=== PATIENT | female | born 1975 | race Caucasian/White ===

== ENCOUNTER → 2016-05-15 | Outpatient (CLI) | payer BC ==
--- NOTE | 2016-05-15 16:45 | MAMMOGRAPHY REPORT ---
BILATERAL DIGITAL SCREENING MAMMOGRAM TOMOSYNTHESIS WITH CAD: 05/15/2016 CLINICAL HISTORY: Routine screening examination. TECHNIQUE: Bilateral breast tomosynthesis in addition to standard 2D mammography was performed. Curr ent study was also evaluated with a Computer Aided Detection (CAD) system. COMPARISON: Comparison is made to exams dated: 05/12/2015 mammogram, 01/17/2014 mammogram, 4 mammogram, 01/17/2014 ultrasound, 02/09/2014 mammogram, and 08/08/2014 ultrasound - [facility]. BREAST COMPOSITION: There are scattered areas of fibroglandular density in both breasts. FINDINGS: There is an enlarging lobulated 7 mm mass in the approximate 2:30 left breast, for which additional targeted ultrasound and possible additional mammographic views are recommended. A newly visualized 6.4 mm mass is identified in the upper outer anterior right breast, also warranting targe galina ultrasound with possible additional mammographic views. No other suspicious mass, architectural distortion or cluster of suspicious microcalcifications is s een bilaterally. IMPRESSION: ACR BI-RADS CATEGORY 0: INCOMPLETE EVALUATION: NEED ADDITIONAL IMAGING EVALUATION The enlarging lobulated 7 mm mass in the 2:30 left breast, and newly visualized 6 mm mass in the upp er outer anterior right breast need additional imaging evaluation. The patient will be called to schedule an appointment. Approximately 10% of breast cancers are not detected with mammography. A negative mammographic repor t should not delay biopsy if a clinically suggestive mass is present. Yuliana Hudson M.D. ay/:05/15/2016 15:44:47 Instrument Operator: Ivelisse HERNANDEZ)([place]), [facility] letter sent: Addl Imaging 0 BI-RADS Code: ACR BI-RADS Category 0: Incomplete Evaluation: Need Additional Imaging Evaluation
== END | disposition home or self-care (01) ==
LOC: C.MAMM 14:19
PROVIDERS: ATTEND Family Medicine
DX: Z12.31 Encounter for screening mammogram for malignant neoplasm of breast (principal); N63 Unspecified lump in breast

== ENCOUNTER → 2016-05-29 | Outpatient (CLI) | payer BC ==
--- NOTE | 2016-05-29 14:42 | MAMMOGRAPHY REPORT ---
ULTRASOUND OF BOTH BREASTS: 05/29/2016 CLINICAL HISTORY: 41-year-old woman called back from screening mammography for an enlarging 7 mm mas s in the approximate 2:30 left breast and newly visualized 6 mm mass in the upper outer anterior rig ht breast. COMPARISON: Comparison is made to exams dated: 05/15/2016 mammogram, 05/12/2015 mammogram, 08/08/2014 ultrasound, 08/08/2014 mammogram, 02/09/2014 mammogram, and 02/09/2014 aspiration - [facility]. FINDINGS: Targeted ultrasound was performed in the approximate 2:00 through 4:00 left breast and up per outer quadrant of the right breast evaluate for the mammographic masses in each breast. In the 3:00 left breast, 4 cm from the nipple, there is a predominantly anechoic cyst with a few thin inter nal nonvascular septations, measuring 7.6 x 4.0 x 5.0 mm. This correlates well in size, shape and l ocation as the mammographic mass and is benign. In the 10:00 right breast, 1 cm from the nipple, th ere is an oval parallel circumscribed anechoic benign simple cyst measuring 6.2 x 3.3 x 6.0 mm. Thi s correlates well with the mammographic mass and is benign. Incidental note is made of a few other adjacent cysts in the 10:00 right breast, 1 cm from the nipple, measuring 2.9 mm, and a small cyst c luster in the 10:00 right breast, 2 cm from the nipple, measuring 4.8 x 2.2 x 6.8 mm. No suspicious solid mass is identified. IMPRESSION: ACR BI-RADS CATEGORY 2: BENIGN The circumscribed masses in each breast correlate with benign cysts on ultrasound. There is no sono graphic evidence of malignancy. Return to annual mammogram screening schedule is recommended. The p atient has been verbally notified of the results. Yuliana Hudson M.D. ay/:05/29/2016 09:23:05 Child & Adolescent Psychiatrist: Dr. Yuliana Hudson, [facility] letter sent: Normal 1/2 BI-RADS Code: ACR BI-RADS Category 2: Benign
== END | disposition home or self-care (01) ==
LOC: C.MAMM 08:41
PROVIDERS: ATTEND Family Medicine
DX: N60.01 Solitary cyst of right breast (principal); N60.02 Solitary cyst of left breast

== ENCOUNTER → 2016-08-06 | Outpatient (CLI) | payer BC | END | disposition home or self-care (01) | LOC: C.PAPS 11:01 | PROVIDERS: ATTEND Obstetrics & Gynecology | DX: Z01.419 Encounter for gynecological examination (general) (routine) without abnormal findings (principal) ==

== ENCOUNTER → 2016-12-09 | Outpatient (CLI) | payer BC ==
--- NOTE | 2016-12-09 16:14 | DIAGNOSTIC IMAGING REPORT ---
LEFT LOWER EXTREMITY VENOUS DOPPLER HISTORY: Acute left lower extremity pain and swelling PAIN IN LOWER LIMB COMPARISON STUDY: None. FINDINGS: There is normal compressibility, flow, and augmentation within the left lower extremity deep venous system. IMPRESSION: No sonographic evidence of deep venous thrombosis within the left lower extremity. Electronically signed by: Marshal Arriaga M.D. 12/09/2016 4:13 PM Dictated Date/Time: 12/09/2016 4:11 PM
== END | disposition home or self-care (01) ==
LOC: C.ULTR 15:37
PROVIDERS: ATTEND Physician Assistant
DX: M79.606 Pain in leg, unspecified (principal)

== ENCOUNTER → 2017-02-13 | Outpatient (CLI) | payer BC ==
[2017-02-13 13:31] LABS: CHOLESTEROL/HDL RATIO 3.9
== END | disposition home or self-care (01) ==
LOC: C.LABMFLN 07:58
PROVIDERS: ATTEND Family Medicine
DX: Z00.00 Encounter for general adult medical examination without abnormal findings (principal); Z13.1 Encounter for screening for diabetes mellitus; Z13.220 Encounter for screening for lipoid disorders

== ENCOUNTER → 2017-07-09 | Outpatient (CLI) | payer BC ==
--- NOTE | 2017-07-09 15:23 | MAMMOGRAPHY REPORT ---
BILATERAL DIGITAL SCREENING MAMMOGRAM TOMOSYNTHESIS WITH CAD: 07/09/2017 CLINICAL HISTORY: Routine screening. Patient has no complaints. TECHNIQUE: Breast tomosynthesis in addition to standard 2D mammography was performed. Current study was also evaluated with a Computer Aided Detection (CAD) system. COMPARISON: Comparison is made to exams dated: 05/29/2016 ultrasound, 05/15/2016 mammogram, 05/12/2015 m ammogram, 08/08/2014 ultrasound, 08/08/2014 mammogram, and 02/09/2014 mammogram - [facility]. BREAST COMPOSITION: There are scattered areas of fibroglandular density in both breasts. FINDINGS: No suspicious masses, calcifications, or areas of architectural distortion are noted in ei ther breast. There has been no significant interval change compared to prior exams. IMPRESSION: ACR BI-RADS CATEGORY 1: NEGATIVE There is no mammographic evidence of malignancy. A 1 year screening mammogram is recommended. The pa tient will receive written notification of the results. Approximately 10% of breast cancers are not detected with mammography. A negative mammographic report should not delay biopsy if a clinically suggestive mass is present. Mis Cornell M.D. /:07/09/2017 07:57:38 Sanitation Technician: Shanta LAN(R)(M), [facility] letter sent: Normal 1/2 BI-RADS Code: ACR BI-RADS Category 1: Negative
== END | disposition home or self-care (01) ==
LOC: C.MAMM 07:10
PROVIDERS: ATTEND Family Medicine
DX: Z12.31 Encounter for screening mammogram for malignant neoplasm of breast (principal)